=== PATIENT | female | born 1970 | race Caucasian/White ===

== ENCOUNTER 2023-12-13 10:45 | Outpatient (AMB) | payer OTHER, SELFPAY ==
--- NOTE | 2023-12-13 10:44 | HO.NEPHOV ---
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 She is 53 years of age with past medical history of hypertension since the age of 39. She had imaging done in the past which showed mildly smaller kidney on the right side with a normal renal artery Doppler study. CT scan at that time showed scarring of 1 kidney with nephrolithiasis. She has not had any significant proteinuria. Her blood pressure has been well controlled. She denies chest pain, shortness of breath, pedal edema, urinary symptoms, hematuria, orthostatic symptoms, paroxysmal nocturnal dyspnea, orthopnea. She does not take any excessive nonsteroidal anti-inflammatories and maintain good hydration. Her serum creatinine had gone up to 1.6 in Jul after a treated UTI in [place] which later improved to 1.3 She feels well. COUNT INCLUDES THE [facility] Medical History (Updated 12/13/23 @ 11:19 by Manoj Gunter MD) Hypertension Mild renal insufficiency Nephrolithiasis Surgical History (Updated 12/13/23 @ 10:56 by Catherine Jaffe MA) H/O section Family History (Updated 12/13/23 @ 10:57 by Catherine Jaffe MA) Father Hypertension Kidney disease Social History Alcohol intake: never Patient Tobacco Use Status: Never used Tobacco Physical Exam Const General: comfortable and no acute distress Orientation/consciousness: patient oriented x3 HEENT Head: Yes normocephalic Mouth: Normal oral and palatal mucosa present Eyes EOM: EOMs intact bilaterally Neck Neck: Yes supple Resp Auscultation: clear to auscultation bilaterally Cardio Jugular venous distension: no JVD Rate: regular rate GI Palpation (GI): Soft to palpation Auscultation: normal bowel sounds General: Yes no CVA tenderness Back/Spine/Pelvis Back: no CVA tenderness Skin General skin exam: no rashes or lesions noted Neuro General: patient oriented x3 and moves all extremities Extrem General: Yes no pedal edema Results Reviewed Nephrology Results: No Data to Display Assessment & Plan Assessment & Plan (1) Hypertension: Code(s): I10 - Essential (primary) hypertension Category: Medical Qualifiers: Hypertension type: secondary to other renal disorders Qualified Code(s): I15.1 - Hypertension secondary to other renal disorders (2) Mild renal insufficiency: Code(s): N28.9 - Disorder of kidney and ureter, unspecified Category: Medical (3) Nephrolithiasis: Code(s): N20.0 - Calculus of kidney Category: Medical (4) LEYLA (acute kidney injury): Code(s): N17.9 - Acute kidney failure, unspecified Category: Medical Plan Олег has hypertension for over 15 years. Her blood pressure is currently well controlled on the current medication regimen. Imaging of the renal arteries in the past to rule out fibromuscular dysplasia was negative. Renal ultrasound in the past showed mildly smaller right kidney with cortical thinning. CT scan showed scarring of 1 kidney with a nephrolithiasis. She likely had LEYLA from UTI and or along with antibiotic she took at that time. She may need ROVERTO inhibitors/ARB in the future and could be a candidate for hydrochlorothiazide and or potassium citrate as well given nephrolithiasis in the past. I had not make any medication changes today. She should maintain good hydration and avoid nonsteroidal anti-inflammatories if at all possible. Follow-up blood work ordered. Answered all questions. Follow-up appointment given. Orders: Orders UA and rflx microscopic Today I15.1 - Hypertension secondary to other renal disorders, N17.9 - Acute kidney failure, unspecified, N20.0 - Calculus of kidney, N28.9 - Disorder of kidney and ureter, unspecified Creatinine Today I15.1 - Hypertension secondary to other renal disorders, N17.9 - Acute kidney failure, unspecified, N20.0 - Calculus of kidney, N28.9 - Disorder of kidney and ureter, unspecified Electrolytes Today I15.1 - Hypertension secondary to other renal disorders, N17.9 - Acute kidney failure, unspecified, N20.0 - Calculus of kidney, N28.9 - Disorder of kidney and ureter, unspecified Protein Creatinine Ratio, Ur Today I15.1 - Hypertension secondary to other renal disorders, N17.9 - Acute kidney failure, unspecified, N20.0 - Calculus of kidney, N28.9 - Disorder of kidney and ureter, unspecified Blood Urea Nitrogen Today I15.1 - Hypertension secondary to other renal disorders, N17.9 - Acute kidney failure, unspecified, N20.0 - Calculus of kidney, N28.9 - Disorder of kidney and ureter, unspecified Calcium Today I15.1 - Hypertension secondary to other renal disorders, N17.9 - Acute kidney failure, unspecified, N20.0 - Calculus of kidney, N28.9 - Disorder of kidney and ureter, unspecified Coding Level of Care Code Est Pt Level 4 (23962) Diagnoses Hypertension secondary to other renal disorders I15.1 Hypertension type: secondary to other renal disorders Mild renal insufficiency N28.9 Nephrolithiasis N20.0 LEYLA (acute kidney injury) N17.9
[2023-12-13 10:54] VITALS: BP 130/80; PULSE 79; O2SAT 97; BMI 34.6
== END 2023-12-13 11:28 | disposition home or self-care (01) ==
PROVIDERS: PCP Internal Medicine; Visit Provider Internal Medicine Nephrology
DX: I15.1 Hypertension secondary to other renal disorders (principal); N28.9 Disorder of kidney and ureter, unspecified; N20.0 Calculus of kidney; N17.9 Acute kidney failure, unspecified
CPT/HCPCS: 99214

== ENCOUNTER → 2023-12-13 10:45 | Outpatient (BNVA) | payer OTHER, SELFPAY | PROVIDERS: PCP Internal Medicine; Visit Provider Internal Medicine Nephrology ==

== ENCOUNTER 2023-12-13 11:35 | Outpatient (REF) | payer OTHER, SELFPAY ==
[2023-12-13 18:16] LABS: Appearance Urine Clear; Color Urine Yellow; Glucose Urine UA Negative (Negative); Leukocyte Esterase Urine Negative (Negative); Nitrite Urine Negative (Negative); Specific Gravity - Urine 1.015 (1.005-1.025); Urine Blood Negative (Negative); Urine Ketones Negative (Negative); Urine Protein Negative (Neg-Trace)
[2023-12-13 18:36] LABS: Anion Gap 12 (12-20); Blood Urea Nitrogen 24 mg/dL (9-16); Calcium 9.6 mg/dL (8.4-10.2); Carbon Dioxide 25 mmol/L (22-29); Chloride 106 mmol/L (96-108); Estimated Glomerular Filt Rate 49; Potassium 4.4 mmol/L (3.3-5.1); Sodium 139 mmol/L (135-145)
[2023-12-13 18:49] LABS: Creatinine Urine 52.86 mg/dL; Total Protein Urine Random < 7 mg/dL (<12)
== END 2023-12-13 11:36 | disposition home or self-care (01) ==
LOC: HO.HKASLDS 11:35
PROVIDERS: Visit Provider Internal Medicine Nephrology
DX: N17.9 Acute kidney failure, unspecified (principal); N20.0 Calculus of kidney; I15.1 Hypertension secondary to other renal disorders; N28.9 Disorder of kidney and ureter, unspecified
CPT/HCPCS: 36415; 80051; 81003; 82310; 82565; 82570; 84156; 84520

== ENCOUNTER → 2024-04-24 13:36 | Outpatient (BNVA) | payer OTHER, SELFPAY | PROVIDERS: PCP Internal Medicine; Visit Provider Internal Medicine Nephrology ==